=== PATIENT | male | born 1985 | race Caucasian/White ===

== ENCOUNTER 2024-10-14 09:13 | Day surgery (SDC) | payer OTHER, SELFPAY ==
--- OUTSIDE RECORDS SUMMARY | 2024-10-06 12:30 | XMS_ITS | Data Portability ---
Author Organization [facility] s, [address] Address [address] [place] [address] Assessment No assessment recorded. Plan of Treatment Reminders Order Date Submit Date Provider Last Modified By Organization Details Last Modified Time Details Appointments None recorded. Lab None recorded. Referral ENT surgery referral 2022 023 [email or web address] Not available 09:08:05 Procedures None recorded. Surgeries None recorded. Imaging None recorded. Medication Orders Augmentin 875 mg-125 mg tablet 2022 023 [facility] #[id number], [address] [place], [address], 14:29:06 loratadine 10 mg tablet 2022 023 [facility] #[id number], [address] [place], [address], 14:29:07 fluticasone propionate 50 mcg/actuati on nasal spray,suspe nsion 2022 023 [id number] [address] [place], [address], 14:29:06 Patient TargetsNo targets recorded. Patient Instructions Encounter Date Encounter Id Patient Instructions Last Modified By Organization Details Last Modified Time 06/20/2022 [id number] Acute Sinusitis: Care Instructions Not available 06/20/2022 14:29:03 chronic sinusitis: care instructions Not available 06/20/2022 14:29:04 Reason for Referral ENT Surgery Referral for Dev iated nasal septum Referring Physician: Royal Miguel, Urgent Care, Encounter Date: 06/20/2022 Problems No Known Problems Medical Equipment None Reported. Allergies No known drug allergies Medications Name Sig Start Date Stop Date Status Note LastModified by Organization Details LastModified Time Augmentin 875 mg-125 mg tablet Take 1 tablet every 12 hours by oral route with meals for 10 days. 2022 active Not Available Not Available Not Avai lable fluticasone propionate 50 mcg/actuatio n nasal spray,suspen elba [place] 1 spray every day by intranasal route. 2022 active Not Available Not Available Not Avai lable loratadine 10 mg tablet Take 1 tablet every day by oral route. 2022 active Not Available Not Available Not Avai lable Vitals Date Recorded Body height Body mass index (BMI) Body weight Oxygen saturation Oxygen saturation in Arterial blood by Pulse oximetry Heart rate Respiratory rate Body temperature Systolic And Diastolic Provider Name and Address Organization Details Last Updated DateTime 167.64 cm 21.3 kg/m2 23690.1 9 g 97 % 97 % 65 /min 16 /min 98.1 [degF] 138/96 mm[Hg] ELMO ROMERO PA - [facility] 14:13:14 Social History Question Answer Notes LastModified by [place] Details LastModified Time Tobacco Smoking Status Former Smoker ELMO vera PA - [facility] 06/20/2022 14:10:17 Which Illicit Or Recreational Drugs Have You Used? Marijuana Information not available 06/20/2022 Have You Recently Traveled Abroad? No Information not available 06/20/2022 Sex: Unknown Functional Status Question Answer Note LastModified by [place] Details LastModified Time Do you use any illicit or recreational drugs? Yes Information not available 06/20/2022 Do you or have you ever used any other forms of tobacco or nicotine? Yes Information not available 06/20/2022 What is your level of alcohol consumption? Occasional Information not available 06/20/2022 Are you currently employed? No Information not available 06/20/2022 Do you or have you ever used e-cigarettes or vape? Current user of electronic cigarettes Information not available 06/20/2022 Mental Status None recorded. Family History Relationship Description Onset Age of this Age Resolved Age Notes LastModified by Organization Details LastModified Time Father No current problems or disability Not available 06/20 14:09:59 Mother No current problems or disability Not available 06/20 14:09:59 Medical History No medical history recorded. Immunizations Vaccine Type Date Status Note Provider Nam e and Address Organization Details Recorded Time COVID-19, mRNA, LNP-S, bivalent, PF, 30 mcg/0.3 mL dose 04/30/2022 completed MARTIN May - [facility] 06/20/2022 14:09:35 Past Encounters Encounter ID Performer Location Encounter Start Date Encounter Closed Date Diagnosis/Indication Diagnosis SNOMED-CT Code Diagnosis ICD10 Code Diagnosis Note [id number] [address] [place] [address] 01/11/2020 15:37:06 01/11/2020 17:10:28 [id number] Royal Miguel DO [address] [place] [address] 06/20/2022 12:22:46 06/20/2022 14:33:37 Acute sinusitis 45380218 J01.90 Given Hx and Sx and PE findings will Rx Antibiotic s and nasal spray and oral antihistam ine Take antibiotic with food. Eat a yogurt daily or take a probiotic while taking the antibiotic . Recommend humidified airrest, fluidstyle nol/ibu prn Patient advised to follow up as needed for worsening symptoms or no improvemen t. Discussed concerning red flags with patient and reasons to follow up in the Emergency Department urgently. Deviated nasal septum 12 [id number] J34.2 ent referral Health Concerns Section Related Observation LastModified by Organization Detai ls LastModified Time None Recorded Concern Status LastModified by Organization Details LastModified Time None Recorded Advance Directives Directive None Recorded Payers Insurance Date Sequence Insurance Name Policy Number Policy Coleman Covered Member ID Coleman Member ID Guarantor Name 06/20/2022 1 RIKCY-ZINA (PPO) [id number] Evan Del Real [id number] Evan Del Real 06/20/2022 PROMPT PAY Co shirlene Del Real Notes Date Note Type Note Provider Name and Address Organization Details Recorded Time 06/20/2022 text/html Sinus Complaints UCReported bypatient.Notes:36 yo male c/o sinus painfacial pain & pressure, congestion with post nasal drip x 12daystried No feverNo chillsNo coughNo difficulty breathing or respiratory distressNo CPNo ear painNo sore throatNo Abdominal painNo nauseaNo vomitingNp diarrheaNo myalgiaNo fatigueNo rashNo HANo dizzinessNo recent travelNo known sick contacts Royal Miguel, DO [facility] [place], [address], PA - [facility] 06/20/2022 14:29:33
--- NOTE | ~2024-10-14 | FL_ITS ---
EXAMINATION: XR LUMBAR PUNCTURE CLINICAL INFORMATION: ENCEPHALITIS COMPARISON: None available. TECHNIQUE: Informed consent was obtained from the patient. Timeout was performed. Using fluoroscopic guidance, the L2-3 interlaminar space was identified, marked, and the skin prepped and draped in sterile fashion. Skin and subcutaneous tissues were anesthetized with 1% lidocaine. Subsequently, a 20-gauge Quincke spinal needle was advanced into the thecal sac, and clear CSF was noted at the needle hub. Opening pressure was measured at 12 cm H2O. Approximately 15 mL of clear CSF was obtained passively, and sent for laboratory analysis. The patient tolerated the procedure well. There were no immediate complications. 1 fluoroscopic spot image obtained. FLUOROSCOPY TIME: 13 seconds DOSE AREA PRODUCT: 100.7 uGy-m2 (microgray-meter squared) FL/FL guided lumbar puncture LP IMPRESSION: 1. Successful L2-3 interlaminar lumbar puncture with collection of approximately 15 mL CSF. 2. Opening pressure measured at 12 cm H2O. Electronically signed by: Irving Calloway MD 10/14/2024 12:51 PM EDT
[2024-10-14 09:49] VITALS: BMI 27.0
[2024-10-14 10:18] LABS: MANUAL DIFF FLAG NO
[2024-10-14 10:25] LABS: Hematocrit 43.5 % (42.0-52.0); Hemoglobin 15.1 g/dl (14.0-18.0); Imm Gran Abs Auto 0.02 X10*3/uL (0.00-0.03); Imm Gran Pct Auto 0.3 % (0.0-0.4); Lymphocytes Absolute Auto 1.7 X10*3/uL (1.2-4.9); Mean Corpuscular HGB Conc 34.7 g/dl (31.0-36.0); Mean Corpuscular Hemoglobin 28.5 pg (27.0-33.0); Mean Corpuscular Volume 82.1 fL (80.0-98.0); NRBC Abs Auto 0.000 X10*3/uL (0.0-0.012); NRBC Pct Auto 0.0 /100WBC (0.0-0.2); Platelet Count 253 X10*3/uL (160-400); Red Blood Count 5.30 X10*6/uL (4.60-5.80); White Blood Count 6.3 X10*3/uL (4.8-10.8)
[2024-10-14 10:28] LABS: INTERNATIONAL NORM RATIO 1.1 (0.9-1.1); Prothrombin Time 12.6 SEC (10.9-12.4)
[2024-10-14 10:30] LABS: Partial Thromboplastin Time 33.4 SEC (26.0-36.8)
[2024-10-14 10:35] LABS: Anion Gap 12 (12-20); Blood Urea Nitrogen 16 mg/dL (9-16); Calcium 9.3 mg/dL (8.4-10.2); Carbon Dioxide 27 mmol/L (22-29); Chloride 106 mmol/L (96-108); Creatinine Clr Calc Pharmacy 104.7; Estimated Glomerular Filt Rate > 60; Potassium 3.7 mmol/L (3.3-5.1); Sodium 141 mmol/L (135-145)
[2024-10-14 11:30] VITALS: BP 117/76; PULSE 63; RESP 18; TEMP 37; O2SAT 98
[2024-10-14 12:00] VITALS: BP 110/62; PULSE 67; RESP 18; O2SAT 99
[2024-10-14 12:15] VITALS: BP 112/71; PULSE 70; RESP 17; O2SAT 98
[2024-10-14 12:30] VITALS: BP 115/71; PULSE 75; RESP 19; TEMP 36.6; O2SAT 99
[2024-10-14 12:47] LABS: Red Blood Cell CSF 1 MM*3; White Blood Cell CSF 1 MM*3
[2024-10-14 13:40] LABS: Lymphocytes CSF 100 %
[2024-10-15 12:40] LABS: Oligoclonal Serum Yes
[2024-10-17 08:18] LABS: Albumin 5.0 g/dL (3.6-5.1); Albumin, CSF 23.6 mg/dL (8.0-42.0); IgG, CSF 3.6 mg/dL (0.8-7.7)
== END 2024-10-14 13:06 | disposition home or self-care (01) ==
LOC: HO.SSS 09:14
PROVIDERS: Radiology Diagnostic Radiology; PCP Internal Medicine; Visit Provider Psychiatry & Neurology Neurology
PROC: 009U3ZZ Drainage of Spinal Canal, Percutaneous Approach (ICD-10-PCS; CPT 62270; principal; 2024-10-14 11:00)
DX: G04.90 Encephalitis and encephalomyelitis, unspecified (principal); R53.82 Chronic fatigue, unspecified; R25.8 Other abnormal involuntary movements; R26.9 Unspecified abnormalities of gait and mobility; J32.9 Chronic sinusitis, unspecified; F41.9 Anxiety disorder, unspecified; F10.11 Alcohol abuse, in remission; Z79.899 Other long term (current) drug therapy
CPT/HCPCS: 36415; 62328; 80048; 82042; 82945; 83916; 84157; 85025; 85610; 85730; 87015; 87070; 87205; 89051; J2003; J2004

== ENCOUNTER → 2024-10-14 11:00 | Outpatient (BNV) | payer OTHER, SELFPAY | PROVIDERS: PCP Internal Medicine; Visit Provider Radiology Diagnostic Radiology | DX: G04.90 Encephalitis and encephalomyelitis, unspecified (principal) | CPT/HCPCS: 62328 ==

== ENCOUNTER 2024-10-19 12:23 | Outpatient (AMB) | payer OTHER, SELFPAY ==
--- NOTE | 2024-10-19 12:44 | MHC.OFFVIS ---
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 He was seen with chronic fatigue syndrome and gait disorder. 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 It was constant and progressing. He was sleeping 5-6 hours a night. His second complaint was unsteadiness and stiffness. He described spasticity and clonus due to which his legs were shake and make him unsteady. He has been seen at [facility] in [place] but his imaging did not reveal any such signs.) His exam revealed bilateral hyperreflexia, especially of legs, flexor planters and mildly spastic gait. [facility] Medical History (Updated 10/19/24 @ 13:05 by Romy Baumann MD) Somatization disorder Gait disorder Anxiety Chronic fatigue syndrome Brain cyst Cervical disc disease No pertinent past medical history Surgical History (Updated 10/14/24 @ 09:49 by David Jean-Baptiste RN) No pertinent past surgical history Social History Patient Tobacco Use Status: Current everyday Tobacco user Tobacco use type: Smokeless Tobacco Second Hand Smoke Exposure: No Assessment & Plan Assessment & Plan (1) Chronic fatigue syndrome: Code(s): G93.32 - Myalgic encephalomyelitis/chronic fatigue syndrome Category: Medical (2) Autoimmune encephalitis: Comment: NCV/EMG RTUE/RTLE (in office) Early right median neuropathy across the Carpal tunnel, otherwise no significant finding noted. 09/05/24. MRI Brain WWO at [place] in Apr 2024: R ant temp area cystic lesion without enhancement, probably intra-axial, Chronic PNS disease MRI C + T + LS spine at [facility] in May 2024: Straight cervical curvature, C 5/6 midline disc w/o significant stenosis, Mild mid thoracic similar disc, no cord disease Labs at [facility] in 2024: B12,folate, TSH, thyroid Abs, ESR, FROILAN, Babesiosis, Lyme, Trepenoma: WNL Code(s): G04.81 - Other encephalitis and encephalomyelitis Category: Medical Plan Impression: a: Encephalitis, probably of autoimmune type: Fatigue, gait disorder, hyperreflexia with CSF protein of 45 and OCBs in serum and CSF Rec: Trial of prednisone Medications: New prednisone 20 mg PO DAILY 90 tabs 0RF Coding Level of Care Code Est Pt Level 5 (09816) Diagnoses Chronic fatigue syndrome G93.32 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
--- OUTSIDE RECORDS SUMMARY | 2024-10-19 13:21 | XMS_ITS | Clinical Summary ---
Author Organization [facility] 299 [facility] Address [address] [place] [address] Phone Care Team Providers Care Dowel Sander Operator Name Role Phone Monique Lott MD Primary Care Provider [phone] Allergies No known active allergies Medications cyanocobalamin, vitamin B-12, (VITAMIN B-12 ORAL) Take by mouth. Activ e D3/red wine/resveratro l/malt (SUPER-D3+ ORAL) D3 Super Strength 50 MCG (2000 UT) Cap TAKE 1 CAPSULE BY MOUTH EVERY DAY Active L. acidophilus/L.b ulgaricus (LACTOBACILLUS ACIDOPH-L.BULGA R ORAL) Take by mouth. - Oral Active magnesium oxide (MAG-OX) 400 mg magnesium tablet Take 400 mg by mouth daily. - Oral Active glucosamine-cho ndroitin 500-400 mg tablet Take 1 tablet by mouth 3 (three) times a day. Active dicyclomine (BENTYL) 10 mg capsuleIndicati ons:Defecation urgency,Periumb ilical abdominal cramping Take 1 capsule (10 mg total) by mouth 2 (two) times a day if needed (for urgency and abdominal pain). 60 capsule 11 4 02/23/20 25 Active wheat dextrin (BENEFIBER CLEAR SF, DEXTRIN, ORAL) Take by mouth. Active loratadine (CLARITIN) 10 mg tablet Take 1 tablet (10 mg total) by mouth 1 (one) time each day if needed for allergies. 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 Del Real describes persistent fatigue headaches and spasticity. He was getting a workup for MS when an MRI of the brain revealed a cystic structure in the anterior aspect of the right temporal lobe. He is neurologically intact but is hyperreflexic and does ambulate with a spastic gait. An MRI of the brain and cervical spine were obtained on April 15 followed by an MRI of the thoracic spine on May 30. Cervical and thoracic MRIs did not reveal any evidence of cord compression. 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 I explained that this was an incidental finding and not likely related to his symptoms. I told him that I would review the films with Dr. Hannah but I presume she would want to get repeat imaging in 3 to 6 months. I let him know I would be back in touch once we had reviewed his situation. 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); MRI of brain abnormal from Last 3 Months Immunizations Name Administration Dates Next Due Influenza Quadravalent, MDCK , 0.5ml, preservative free (Flucelvax) 6mo and older 01/03/2020 Influenza trivalent, 0.5mL, preservative free (Fluarix; FluLaval; Fluzone) ages 6mo and older (Afluria) 3 years and older 05/11/2024 Pfizer (ages 12 & older) Andrae, COVID-19 04/07 Surgical History Surgery Date Site/Laterality Comments ESOPHAGOGASTRODUODENOSCOPY 06/01/2023 negative biopsy Medical History Medical History Date Comments GERD (gastroesophageal reflux disease) Anxiety Family History Medical History Relation Name Comments Bipolar disorder Mother Psoriasis Mother Rheum arthritis Other Great Aunt Colon cancer Neg Hx Colonic polyp Neg Hx Relation Name Status Comments Mother Other Great Aunt Social History Tobacco Use Types Packs/Day Years Used Date Smoking Tobacco: Former Cigarettes 2019 Smokeless Tobacco: Never Tobacco Cessation:Counseling Given: Not Answered Alcohol Use Standard Drinks/Week Comments Not Currently 0 (1 standard drink = 0.6 oz pur e alcohol) Housing Instability Answer Date Recorde d Are you worried that in the next 2 months you may not have stable housing? No 05/25/2024 Food Access & Nutrition Answer Date Rec orded Do you have access to a vari ety of food including fruits and vegetables? Yes 05/25/2024 Health Literacy Answer Date Recorded How often do you need to hav e someone help you when you read instructions, pamphlets, or other written material from your doctor or pharmacy? Never 05/25/2024 Caregiver: How often do you need to have someone help you when you read instructions, pamphlets, or other written material from your doctor or pharmacy? Not on file 05/25/2024 Financial Risk Answer Date Recorded How hard is it for you to pa y for the very basics like food, housing, medical care, and air conditioning / heating? Very hard 05/25/2024 Transportation Answer Date Recorded Has the lack of transportati on kept you from meetings, work, or from getting things needed for daily living? No Has the lack of transportati on kept you from medical appointments or from getting medications? No 05/25/2024 Social Isolation Answer Date Recorded How often do you feel lonely or isolated from th ose around you? Never 05/25/2024 Food Risk Answer Date Recorded Within the past 12 months we worried whether our food would run out before we got money to buy more. Never true 05/25/2024 Within the past 12 months th e food we bought just didn't last and we didn't have money to get more. Never true 05/25/2024 Dependent Care Answer Date Recorded Do you need help finding or paying for care for your loved ones. For example, child care giver or elderly care for an older adult? No 05/25/2024 Education Answer Date Recorded Do you think completing more education or training, like finishing a GED, going to college, or learning a trade, would be helpful for you? No 05/25/2024 Employment and Income Answer Date Recor ded During the last four weeks, have you been actively looking for work? No 05/25/2024 Living Situation Answer Date Recorded What is your living situation? 0 05/25/2024 Sex and Gender Information Value Date Recorded Sex Assigned at Not on file Legal Sex Male 6:49 AM EST Gender Identity Not on file Sexual Orientation Not on file Obstetrics History Last Filed Vital Signs Vital Sign Reading Time Taken Comments Blood Pressure 92/62 06/22/2024 1:21 PM EDT Pulse 80 06/22/2024 1:21 PM EDT Temperature 36.9 C (98.4 F) 06/22/2024 1:21 PM EDT Respiratory Rate 14 06/22/2024 1:21 PM EDT Oxygen Saturation 99% 05/26/2024 8:35 AM EST Inhaled Oxygen Concentration - - Weight 56.7 kg (125 lb) 07/26/2024 2:26 PM EDT Height 167.6 cm (5' 6 ) 07/26/2024 2:26 PM EDT Body Mass Index 20.18 07/26/2024 2:26 PM EDT Plan of Treatment Upcoming Encounters Date Type Department Care Team (Late st Contact Info) Description 11/22/2024 8:30 AM EDT Office Visit [facility] [address] [facility] [address] [place] [address] Obdulia Zheng MD [address] [facility] [address] [place] [phone] 01/11/2025 10:00 AM EDT Office Visit Adult Medicine [address] [address] Monique Lott MD [address] [place] [address] Health Maintenance Due Date Last Done Comments DTaP,Tdap,and Td Vaccines (1 - Tdap) 12/06/2006 Hepatitis B Vaccines (1 of 3 - 19+ 3-dose series) 12/06/2006 Influenza Vaccine (#1) 2024 05/11/2024, 2019 Social Influencers of Health Screening 05/25/2025 05/25/2024 Cholesterol Screening (Lipid Panel) 05/31/2029 05/31/2024, 05/25/2023 COVID-19 Vaccine Completed 05/11/2024, , 02/20/2021, Additional history exists Depression Screening Completed 05/25/2024 Hepatitis C Screening Completed 05/31/2024, 025 HIV Screening Completed 10/18/2024, 03/22/2024 HIB Vaccines Aged Out No longer eligi ble based on patient's age to complete this topic HPV Vaccines Aged Out No longer eligi ble based on patient's age to complete this topic Hepatitis A Vaccines Aged Out No long er eligible based on patient's age to complete this topic IPV Vaccines Aged Out No longer eligi ble based on patient's age to complete this topic MMR Vaccines Aged Out No longer eligi ble based on patient's age to complete this topic Meningococcal ACWY Vaccine Aged Out N o longer eligible based on patient's age to complete this topic Meningococcal B Vaccine Aged Out No l onger eligible based on patient's age to complete this topic Pneumococcal Vaccine: Pediatrics (0 to 5 Years) and At-Risk Patients (6 to 49 Years) Aged Out No longer eligible based on patient's age to complete this topic RSV Immunization Patients Under 20 months Aged Out No longer eligible based on patient's age to complete this topic Varicella Vaccines Aged Out No longer eligible based on patient's age to complete this topic Procedures Procedure Name Priority Date/Time Associated Diagnosis Comments IMMUNOGLOBULINS IGG, IGA, IGM Routine 10/18/2024 10:36 AM EDT Encephalitis FOLATE Routine 10/18/2024 10:36 AM EDT Encephalitis SEDIMENTATION RATE Routine 10/18/2024 10 :36 AM EDT Encephalitis VITAMIN B12 Routine 10/18/2024 10:36 AM EDT Encephalitis BORRELIA BURGDORFERI ANTIBODY Routine 10/18/2024 10:36 AM EDT Encephalitis HIV 1, 2 ANTIBODY, P24 ANTIGEN WITH REFLEX TO DIFFERENTIATION Routine 10/18/2024 10:36 AM EDT Encephalitis TREPONEMA PALLIDUM ANTIBODY WITH REFLEX TO RPR AND PARTICLE AGGLUTINATION Routine 10/18/2024 10:36 AM EDT Encephalitis ANTI-NEUTROPHILIC CYTOPLASMIC ANTIBODY Routine 10/18/2024 10:36 AM EDT Encephalitis THYROID PEROXIDASE ANTIBODY Routine 10/18/2024 10:36 AM EDT Encephalitis EXTERNAL XRAY REPORT 10/14/2024 CERULOPLASMIN Routine 08/30/2024 9:57 AM EDT Numbness Tremor VITAMIN B12 AND FOLATE Routine 9:46 AM EDT Vitamin B12 deficiency THYROID STIMULATING HORMONE Routine 08/22/2024 9:46 AM EDT Chronic fatigue CREATINE KINASE Routine 08/22/2024 9:46 AM EDT Chronic fatigue VITAMIN D 25 HYDROXY Routine 08/22/2024 9:46 AM EDT Vitamin D deficiency HEPATITIS C ANTIBODY Routine 05/31/2024 10:21 AM EST Screen for STD (sexually transmitted disease) LIPID PANEL WITH REFLEX TO DIRECT LDL Routine 05/31/2024 10:21 AM EST Polyarthralgia from Last 3 Months or Most Recently Relevant to Health Maintenance Results * HIV 1,2 antibody, p24 antigen with reflex to differentiation (10/18/2024 10:36 AM EDT) [facility] HIV Combo AB/AG Negative Negative LAB CHEMISTRY METHOD 10/18/2024 5:01 PM EDT [facility] Blood Venous blood specimen / Unknown Venipuncture / Unknown 10/18/2024 10:36 AM EDT 10/18/2024 10:36 AM EDT Narrative [facility] - 10/18/2024 5:01 PM EDT This assay is a 4th generation assay allowing for earlier detection of HIV infection by detecting the presence of the HIV-1 p24 antigen as well as the traditional antibodies to HIV type 1 (including group O) and type 2. Use of a 4th generation assay is the current CDC recommendation for HIV screening. Romy Baumann MD LAB BLOOD ORDERABLES Final Result Performing Organization Address City/[facility]/ZIP Co de Phone Number [facility] [address] [place] [address], [place] [phone] * Treponema pallidum antibody with reflex to RPR and particle agglutination (10/18/2024 10:36 AM EDT) [facility] T. Pallidum Antibodies Negative Negative LAB CHEMISTRY METHOD 10/18/2024 5:24 PM EDT [facility] Blood Venous blood specimen / Unknown Venipuncture / Unknown 10/18/2024 10:36 AM EDT 10/18/2024 10:36 AM EDT us Romy Baumann MD LAB BLOOD ORDERABLES Final Result [facility] [address] [place] [address], [place] [phone] * Thyroid peroxidase antibody (10/18/2024 10:36 AM EDT) Thyroid Peroxidase Ab 37.0 <=60.0 I Unit/mL LAB CHEMISTRY METHOD 10/18/2024 4:21 PM EDT [facility] Blood Venous blood specimen / Unknown Venipuncture / Unknown 10/18/2024 10:36 AM EDT 10/18/2024 10:36 AM EDT us Romy Baumann MD LAB BLOOD ORDERABLES Final Result Performing Organization Address [facility] de Phone Number [facility] [address] [place] [address], * Borrelia burgdorferi antibody (10/18/2024 10:36 AM EDT) Lyme Ab Negative Negative LAB CHEMISTRY METHOD 10/18/2024 12:50 PM EDT [facility] Comment: No laboratory evidence of infection with B. burgdorferi (Lyme disease). Negative results may occur in patients recently infected (<=14 days) with B. burgdorferi. If recent infection is suspected, repeat testing on a new sample collected in 7- 14 days is recommended. Blood Venous blood specimen / Unknown Venipuncture / Unknown 10/18/2024 10:36 AM EDT 10/18/2024 10:36 AM EDT us Romy Baumann MD LAB BLOOD ORDERABLES Final Result Performing Organization Address [facility] de Phone Number [facility] [address] [place] [address], [place] [phone] * Anti-neutrophilic cytoplasmic antibody (10/18/2024 10:36 AM EDT) Myeloperoxidase Ab Negative Negative LAB CHEMISTRY METHOD 10/19/2024 11:13 AM EDT [facility] Myeloperoxidase Ab, Quant 1 <=20 units LAB CHEMISTRY METHOD 10/19/2024 11:13 AM EDT [facility] Proteinase-3 Ab Negative Negative LAB CHEMISTRY METHOD 10/19/2024 11:13 AM EDT [facility] Proteinase-3 Ab Quant 1 <=20 units LAB CHEMISTRY METHOD 10/19/2024 11:13 AM EDT [facility] Blood Venous blood specimen / Unknown Venipuncture / Unknown 10/18/2024 10:36 AM EDT 10/18/2024 10:36 AM EDT Romy Baumann MD LAB BLOOD ORDERABLES Final Result Performing Organization Address City/[facility]/ZIP Co de Phone Number [facility] [address] [place] [address], [place] [phone] * Sedimentation rate (10/18/2024 10:36 AM EDT) Sed Rate 3 0 - 15 mm/hr LAB HEMETOLOGY METHOD 10/18/2024 12:03 PM EDT [facility] Blood Venous blood specimen / Unknown Venipuncture / Unknown 10/18/2024 10:36 AM EDT 10/18/2024 10:36 AM EDT Romy Baumann MD LAB BLOOD ORDERABLES Final Result Performing Organization Address [facility]/ZIP Co de Phone Number [facility] [address] [place] [address], [place] [phone] * (ABNORMAL) Immunoglobulins IgG, IgA, IgM (10/18/2024 10:36 AM EDT) Total IgG 1,780(H) 549 - 1,584 mg/dL LAB CHEMISTRY METHOD 10/19/2024 10:43 AM EDT [facility] IgA 331 61 - 348 mg/dL LAB CHEMISTRY METHOD 10/19/2024 10:43 AM EDT [facility] IgM 60 23 - 259 mg/dL LAB CHEMISTRY METHOD 10/19/2024 10:43 AM EDT [facility] Blood Venous blood specimen / Unknown Venipuncture / Unknown 10/18/2024 10:36 AM EDT 10/18/2024 10:36 AM EDT Romy Baumann MD LAB BLOOD ORDERABLES Final Result Performing Organization Address City/[facility]/ZIP Co de Phone Number [facility] [address] [place] [address], [place] [phone] * Folate (10/18/2024 10:36 AM EDT) Folate 3.1 2.8 - 17.0 ng/ml LAB CHEMISTRY METHOD 10/18/2024 2:51 PM EDT [facility] Blood Venous blood specimen / Unknown Venipuncture / Unknown 10/18/2024 10:36 AM EDT 10/18/2024 10:36 AM EDT Romy Baumann MD LAB BLOOD ORDERABLES Final Result Performing Organization Address [facility]/ZIP Co de Phone Number [facility] [address] [place] [address], [place] [phone] * (ABNORMAL) Vitamin B12 (10/18/2024 10:36 AM EDT) Vitamin B-12 1,310(H) 250 - 900 pcg/mL LAB CHEMISTRY METHOD 10/18/2024 2:51 PM EDT [facility] Blood Venous blood specimen / Unknown Venipuncture / Unknown 10/18/2024 10:36 AM EDT 10/18/2024 10:36 AM EDT Romy Baumann MD LAB BLOOD ORDERABLES Final Result Performing Organization Address City/[facility]/ZIP Co de Phone Number [facility] [address] [place] [address], [place] [phone] * External Xray Report (10/14/2024) Anatomical Region Laterality Modality Radiographic Cate ging Provider [facility] XR PROCEDURES Final Result * Ceruloplasmin (08/30/2024 9:57 AM EDT) Ceruloplasmin 23 20 - 60 mg/dL 09/02/2024 5:43 AM EDT [facility] Comment: Test performed at [facility], [address] , [place] [address] Diane Lockhart MD, PhD - Athletic Coordinator Blood Venous blood specimen / Unknown Venipuncture / Unknown 08/30/2024 9:57 AM EDT 08/30/2024 9:57 AM EDT Kan Denis MD LAB BLOOD ORDERABLES Final R esult [facility] [address] [place] [address] * (ABNORMAL) Vitamin B12 and folate (08/22/2024 9:46 AM EDT) Pathologist [facility] Vitamin B-12 1,311(H) 250 - 900 pcg/mL LAB CHEMISTRY METHOD 08/22/2024 2:42 PM EDT [facility] Folate 3.4 2.8 - 17.0 ng/ml LAB CHEMISTRY METHOD 08/22/2024 2:42 PM EDT [facility] Blood Venous blood specimen / Unknown Venipuncture / Unknown 08/22/2024 9:46 AM EDT 08/22/2024 9:46 AM EDT Monique Lott MD LAB BLOOD ORDERABLES Final Resul t [facility] [address] [place] [address], * Vitamin D 25 hydroxy (08/22/2024 9:46 AM EDT) Vit D, 25-Hydroxy 67.6 30.0 - 80.0 ng/mL LAB CHEMISTRY METHOD 08/22/2024 5:08 PM EDT [facility] Blood Venous blood specimen / Unknown Venipuncture / Unknown 08/22/2024 9:46 AM EDT 08/22/2024 9:46 AM EDT Monique Lott MD LAB BLOOD ORDERABLES Final Resul t Performing Organization Address City/[facility]/ZIP Co de Phone Number [facility] [address] [place] [address], [place] [phone] * Thyroid stimulating hormone (08/22/2024 9:46 AM EDT) Pathologist [facility] TSH 1.43 0.40 - 4.00 mcIU/mL LAB CHEMISTRY METHOD 08/22/2024 5:08 PM EDT [facility] Blood Venous blood specimen / Unknown Venipuncture / Unknown 08/22/2024 9:46 AM EDT 08/22/2024 9:46 AM EDT us Romy Baumann MD LAB BLOOD ORDERABLES Final Result [facility] [address] [place] [address], [place] [phone] * Creatine kinase (08/22/2024 9:46 AM EDT) Total CK 90 22 - 269 unit/L LAB CHEMISTRY METHOD 08/22/2024 2:42 PM EDT [facility] Blood Venous blood specimen / Unknown Venipuncture / Unknown 08/22/2024 9:46 AM EDT 08/22/2024 9:46 AM EDT us Romy Baumann MD LAB BLOOD ORDERABLES Final Result Performing Organization Address City/[facility]/ZIP Co de Phone Number [facility] [address] [place] [address], [place] [phone] * Hepatitis C antibody (05/31/2024 10:21 AM EST) [facility] Hepatitis C Antibody Negative Negative LAB CHEMISTRY METHOD 05/31/2024 4:26 PM [facility] Blood Venous blood specimen / Unknown Venipuncture / Unknown 05/31/2024 10:21 AM EST 05/31/2024 10:21 AM EST Monique Lott MD LAB BLOOD ORDERABLES Final Resul t Performing Organization Address [facility]/ZIP Co de Phone Number [facility] [address] [place] [address], [place] [phone] * Lipid panel with reflex to direct LDL (05/31/2024 10:21 AM EST) [facility] Cholesterol 157 0 - 200 mg/dL LAB CHEMISTRY METHOD 05/31/2024 2:25 PM [facility] Triglycerides 90 0 - 150 mg/dL LAB CHEMISTRY METHOD 05/31/2024 2:25 PM [facility] HDL 42 >=40 mg/dL LAB CHEMISTRY METHOD 05/31/2024 2:25 PM [facility] LDL Calculated 97 0 - 100 mg/dL LAB CHEMISTRY METHOD 05/31/2024 2:25 PM [facility] VLDL Cholesterol Esdras 18 mg/dL LAB CHEMISTRY METHOD 05/31/2024 2:25 PM [facility] Non HDL Chol. (LDL+VLDL) 115 <145 mg/dL LAB CHEMISTRY METHOD 05/31/2024 2:25 PM [facility] Chol/HDL Ratio 3.7 0.0 - 4.4 LAB CHEMISTRY METHOD 05/31/2024 2:25 PM [facility] Blood Venous blood specimen / Unknown Venipuncture / Unknown 05/31/2024 10:21 AM EST 05/31/2024 10:21 AM EST Monique Lott MD LAB BLOOD ORDERABLES Final Resul t [facility] ([facility]) [facility] [address] [place] [address], from Last 3 Months or Most Recently Relevant to Health Maintenance Insurance [facility] [employer] Care Teams Dowel Sander Operator Relationship Specialty Start Date End Date Monique Lott MD [address] [place] [id number] PCP - General 07/08/22
--- OUTSIDE RECORDS SUMMARY | 2024-10-19 13:21 | XMS_ITS | Data Portability ---
Author Organization [facility], [address] Address [address] [place] [address] Assessment No assessment recorded. Plan of Treatment Reminders Order Date Submit Date Provider Last Modified By Organization Details Last Modified Time Details Appointments None recorded. Lab None recorded. Referral ENT surgery referral 2022 023 [email or web address] Not available 09:08:05 Procedures None recorded. Surgeries None recorded. Imaging None recorded. Medication Orders Augmentin 875 mg-125 mg tablet 2022 023 [facility] #[id number], [address] [place], [address], 14:29:06 loratadine 10 mg tablet 2022 023 [facility] #[id number], [address] [place], [address], 14:29:07 fluticasone propionate 50 mcg/actuati on nasal spray,suspe nsion 2022 023 [id number] [address] [place], [address], 14:29:06 Patient TargetsNo targets recorded. Patient Instructions Encounter Date Encounter Id Patient Instructions Last Modified By Organization Details Last Modified Time 06/20/2022 [id number] Acute Sinusitis: Care Instructions Not available 06/20/2022 [...] propionate 50 mcg/actuatio n nasal spray,suspen elba [place] 1 spray every day by intranasal route. [...] Last Updated DateTime 167.64 cm 21.3 kg/m2 00051.1 9 g 97 % 97 % 65 /min 16 /min 98.1 [degF] 138/96 mm[Hg] ELMO ROMERO PA - [facility] 14:13:14 Social History Question Answer Notes LastModified by [employer] Details LastModified Time Tobacco Smoking Status Former Smoker ELMO vera PA - [facility] 06/20/2022 14:10:17 Which Illicit Or Recreational Drugs Have You Used? Marijuana Information not available 06/20/2022 Have You Recently Traveled Abroad? No Information not available 06/20/2022 Sex: Unknown Functional Status Question Answer Note LastModified by [employer] Details LastModified Time Do you use any [...] SNOMED-CT Code Diagnosis ICD10 Code Diagnosis Note [id number] [address] [place] [address] 01/11/2020 15:37:06 01/11/2020 17:10:28 [id number] Royal Miguel DO [address] [place] [address] 06/20/2022 12:22:46 06/20/2022 14:33:37 Acute sinusitis [id number] J01.90 Given Hx and Sx and PE [...] Emergency Department urgently. Deviated nasal septum 12 [id number] J34.2 ent referral Health Concerns Section Related Observation LastModified by Organization Detai ls LastModified Time None Recorded Concern Status LastModified by Organization Details LastModified Time None Recorded Advance Directives Directive None Recorded Payers Insurance Date Sequence Insurance Name Policy Number Policy Coleman Covered Member ID Coleman Member ID Guarantor Name 06/20/2022 1 RICKY-ZINA (PPO) [id number] Evan Del Real [id number] Evan Del Real 06/20/2022 PROMPT PAY [...] travelNo known sick contacts Royal Miguel, DO [facility] [place], [address], PA - [facility] 06/20/2022 14:29:33
== END 2024-10-19 13:13 | disposition home or self-care (01) ==
LOC: HO.HSM 12:24
PROVIDERS: PCP Internal Medicine; Visit Provider Psychiatry & Neurology Neurology
DX: G93.32 Myalgic encephalomyelitis/chronic fatigue syndrome (principal); G04.81 Other encephalitis and encephalomyelitis
CPT/HCPCS: 99214

== ENCOUNTER → 2024-10-19 12:23 | Outpatient (BNVA) | payer OTHER, SELFPAY | PROVIDERS: PCP Internal Medicine; Visit Provider Psychiatry & Neurology Neurology | DX: G93.32 Myalgic encephalomyelitis/chronic fatigue syndrome (principal); G04.81 Other encephalitis and encephalomyelitis | CPT/HCPCS: 99212 ==

== ENCOUNTER 2024-11-28 08:39 | Outpatient (AMB) | payer OTHER, SELFPAY ==
--- OUTSIDE RECORDS SUMMARY | 2024-11-24 23:59 | XMS_ITS | Continuity of Care Document ---
Author Organization [facility] Address [address] [place] [address]- Care Team Providers Care Body Piercer Name Role Phone Oren HOWARD, Monique Primary Care Physician [phone] Encounter [facility] Date(s): 10/25/24 - 11/24/24 [facility] [address] [place] [phone]- Attending Physician: Grace Stein Admitting Physician: Grace Stein Referring Physician: Grace Stein Encounter Type: Triage Allergies, Adverse Reactions, Alerts No Known Allergies Medications dicyclomine 10 mg oral capsule 0 Refills, Maintenance, 10/25/24 9:08:00 AM EDT, Partial fill upon patient request if the prescription is for a schedule II opioid drug. Start Date: 10/25/24 Status: Ordered Repeat number: 1 Drysol 20% topical solution 0 Refills, Maintenance, 10/25/24 9:07:00 AM EDT, Partial fill upon patient request if the prescription is for a schedule II opioid drug. Start Date: 10/25/24 Status: Ordered Repeat number: 1 Glucosamine Chondroitin By Mouth, Daily, 0 Refills, Maintenance, 10/25/24 9:11:00 AM EDT, Partial fill upon patient request if the prescription is for a schedule II opioid drug. Start Date: 10/25/24 Status: Ordered Repeat number: 1 ketoconazole 2% topical shampoo 0 Refills, Maintenance, 10/25/24 9:07:00 AM EDT, Partial fill upon patient request if the prescription is for a schedule II opioid drug. Start Date: 10/25/24 Status: Ordered Repeat number: 1 Misc Rx Refills 0, Maintenance, Magnesium 400 mg, 10/25/24 9:09:00 AM EDT, Supply Start Date: 10/25/24 Status: Ordered Repeat number: 1 omeprazole 20 mg oral enteric coated capsule 1 capsule = 20 mg, By Mouth, Daily, # 60 capsule, 0 Refills, Maintenance, 05/19/23 10:38:00 AM EST, EC Capsule, [facility]/pharmacy #[id number], Partial fill upon patient request if the prescription is for a schedule II opioid drug., 168, cm, 05/19/23 8:36:00 EST, Height, 58.9, kg, 05/19/23 8:36:00 EST, Dry Weight Start Date: 05/19/23 Stop Date: 07/18/23 Status: Ordered Quantity: 60.0 Unit: capsule Repeat number: 1 predniSONE 20 mg oral tablet 0 Refills, Maintenance, 10/25/24 9:07:00 AM EDT, Partial fill upon patient request if the prescription is for a schedule II opioid drug. Start Date: 10/25/24 Status: Ordered Repeat number: 1 Vitamin D3 oral tablet 1 tablet = 10 mcg, By Mouth, Daily, # 30 tablet, 0 Refills, Maintenance, 10/25/24 9:10:00 AM EDT, Tablet, Partial fill upon patient request if the prescription is for a schedule II opioid drug. Start Date: 10/25/24 Status: Ordered Quantity: 30.0 Unit: tablet Repeat number: 1 Vitamin D3 oral tablet 1 tablet = 10 mcg, By Mouth, Daily, 2000units, # 30 tablet, 0 Refills, Maintenance, 10/25/24 9:10:00AM EDT, Tablet, Partial fill upon patient request if the prescription is for a schedule II opioid drug. Start Date: 10/25/24 Status: Ordered Quantity: 30.0 Unit: tablet Repeat number: 1 Patient Care team information Care Team Personnel Name: Monique Lott MD Position: Reference Physician Member Role: PCP Address: [address] [place] [id number] Telecom: Care Team Related Persons Name: GEMMA CHESTER Insurance Providers Guarantor name: ANGELIA Health Plan Information #: 1 Payer: [employer] Payer Identifier: ANGELIA Member Number: [id number] Group Number: ANGELIA Subscriber Identifier: [id number] Relationship to Subscriber: self Coverage Type: NA Coverage Verification Date: ANGELIA Telecom: ANGELIA Address:
--- OUTSIDE RECORDS SUMMARY | 2024-11-28 09:06 | XMS_ITS | Clinical Summary ---
Author Organization [facility] [address] [facility] Address [address] [place] [address] Phone Care Team Providers Care Seal Delivery Vehicle Team Technician Name Role Phone Monique Lott MD Primary Care Provider [phone] Allergies No known active allergies Medications magnesium oxide (MAG-OX) 400 mg magnesium tablet [...] SF, DEXTRIN, ORAL) Take by mouth. Active Vitamin D3 50 mcg (2,000 unit) capsule TAKE 1 CAPSULE BY MOUTH EVERY DAY 90 capsule 1 5 Active omeprazole (PriLOSEC) [address] capsule TAKE 1 CAPSULE BY MOUTH EVERY DAY 90 capsule 1 5 Active ketoconazole (NIZORAL) 2 % cream Apply topically. 5 Active Drysol Dab-O-Matic 20 % external solution APPLY TO AFFECTED AREAS DAILY AT BEDTIME WHEN STABLE, DECREASE TO TWICE A WEEK. 5 Active ketoconazole (NIZORAL) 2 % shampoo APPLY TO SCALP 2X/WK, LEAVE ON 5 MINUTES THEN WASH OFF 5 Active predniSONE (DELTASONE) 20 mg tablet Take 1 tablet (20 mg total) by mouth 1 (one) time each day. 5 Active loratadine (CLARITIN) 10 mg tablet Take 1 tablet (10 mg total) by mouth 1 (one) time each day if needed for allergies. 90 each 1 5 05/10/19 26 Active cyanocobalamin, vitamin B-12, (VITAMIN B-12 ORAL) Take by mouth. 11/12/19 25 Discontinu ed(Therapy completed) D3/red wine/resveratro l/malt (SUPER-D3+ ORAL) D3 Super Strength 50 MCG (2000 UT) Cap TAKE 1 CAPSULE BY MOUTH EVERY DAY 11/12/19 25 Discontinu ed(Therapy completed) L. acidophilus/L.b ulgaricus (LACTOBACILLUS ACIDOPH-L.BULGA R ORAL) Take by mouth. - Oral 11/12/19 25 Discontinu ed(Therapy completed) loratadine (CLARITIN) 10 mg tablet Take 1 tablet (10 mg total) by mouth 1 (one) time each day if needed for allergies. 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 Assessment & Plan (07/26/2024 [...] Encounters Date Type Department Care Team Description 11/27/2024 8:54 AM EDT - 11/27/2024 11:59 PM EDT Hospital Encounter [facility] [address] [place] [phone] Paresthesia; Stiffness of unspecified joint, not elsewhere classified; Optic neuritis Discharge Disposition: Home or Self Care 11/27/2024 8:54 AM EDT - 11/27/2024 11:59 PM EDT Hospital Encounter [facility] [address] [place] [phone] Paresthesia; Stiffness of unspecified joint, not elsewhere classified; Optic neuritis Discharge Disposition: Home or Self Care 11/22/2024 8:30 AM EDT Office Visit [facility] [address] [facility] [address] [place] [phone] Obdulia Zheng MD Paresthesia (Primary Dx); Stiffness of unspecified joint, not elsewhere classified; Optic neuritis 11/11/2024 7:30 AM EDT Office Visit Adult Medicine [address] [phone] Monique Lott MD IgM kappa monoclonal gammopathy (Primary Dx); 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 Immunizations Name Administration Dates Next Due Influenza Quadravalent, MDCK , 0.5ml, preservative free (Flucelvax) 6mo and older 01/03/2020 Influenza trivalent, 0.5mL, preservative free (Fluarix; FluLaval; Fluzone) ages 6mo and older (Afluria) 3 years and older 05/11/2024 Pfizer (ages 12 & older) Bivalent, COVID-19 04/07 Surgical History Surgery Date Site/Laterality Comments ESOPHAGOGASTRODUODENOSCOPY 06/01/2023 negative biopsy Medical History Medical History Date Comments GERD (gastroesophageal reflux disease) Anxiety Family History Medical History Relation Name Comments Marfan syndrome Brother Bipolar disorder Mother Psoriasis Mother Rheum arthritis Other Great Aunt Colon cancer Neg Hx Colonic polyp Neg Hx Relation Name Status Comments Brother Mother Other Great Aunt Social History Tobacco Use Types Packs/Day Years Used Date Smoking Tobacco: Former Cigarettes 1 10 2 2019 Smokeless Tobacco: Never Alcohol Use Standard Drinks/Week Comments Not Currently [...] care for your loved ones. For example, registered nurse maternal child or elderly care for an older adult? [...] Sign Reading Time Taken Comments Blood Pressure 121/82 11/22/2024 8:26 AM EDT Pulse 83 11/22/2024 8:26 AM EDT Temperature 36.4 C (97.5 F) 11/11/2024 7:25 AM EDT Respiratory Rate 14 11/11/2024 7:25 AM EDT Oxygen Saturation 99% 11/22/2024 8:26 AM EDT Inhaled Oxygen Concentration - - Weight 54.9 kg (121 lb) 11/27/2024 9:43 AM EDT Height 167.6 cm (5' 6 ) 11/22/2024 8:26 AM EDT Body Mass Index 19.53 11/22/2024 8:26 AM EDT Plan of Treatment Upcoming Encounters Date Type Department Care Team (Late st Contact Info) Description 12/02/2024 9:15 AM EDT Office Visit [facility] Hematology Oncology [address] [place] [phone] Dane Bañuelos MD [address] [place] [phone] 01/11/2025 10:00 AM EDT Office Visit Adult Medicine [address] [phone] Monique Lott MD [address] [place] [phone] 03/24/2025 8:00 AM EST Telemedicine [facility] [address] [phone] Obdulia Zheng MD [address] [facility] [address] [place] [address] Health Maintenance Due Date Last Done Comments [...] Procedure Name Priority Date/Time Associated Diagnosis Comments MYELIN OLIGODENDROCYTE GLYCOPROTEIN ANTIBODY WITH REFLEX TO TITER Routine 11/23/2024 8:06 AM EDT WI IMMUNOFIXATION ELECTROPHORESIS SERUM Routine 10/18/2024 10:36 AM EDT Encephalitis IMMUNOGLOBULINS IGG, IGA, IGM Routine 10/18/2024 10:36 AM EDT Encephalitis BABESIA MICROTI ANTIBODIES, IGG AND IGM Routine 10/18/2024 10:36 AM EDT Encephalitis FOLATE Routine 10/18/2024 10:36 AM EDT Encephalitis SEDIMENTATION RATE Routine 10/18/2024 10 :36 AM EDT Encephalitis VITAMIN B12 Routine 10/18/2024 10:36 AM EDT Encephalitis IMMUNOFIXATION ELECTROPHORESIS Routine 10/18/2024 10:36 AM EDT Encephalitis BORRELIA BURGDORFERI ANTIBODY Routine 10/18/2024 10:36 AM EDT Encephalitis FROILAN IFA WITH TITER AND PATTERN Routine 10/18/2024 10:36 AM EDT Encephalitis HIV [...] Routine 08/30/2024 9:57 AM EDT Numbness Tremor HEPATITIS C ANTIBODY Routine 05/31/2024 10:21 AM EST Screen for STD (sexually transmitted disease) LIPID PANEL WITH REFLEX TO DIRECT LDL Routine 05/31/2024 10:21 AM EST Polyarthralgia from Last 3 Months or Most Recently Relevant to Health Maintenance Results * Myelin oligodendrocyte glycoprotein antibody with reflex to titer (11/23/2024 8:06 AM EDT) Myelin Oligodendrocyte Glycoprotein (MOG) Ab NEGATIVE NEGATIVE [facility], Comment: This test was developed and its analytical performance characteristics have been determined by [facility]. It has not been cleared or approved by the FDA. This assay has been validated pursuant to the CLIA regulations and is used for clinical purposes. 11/23/2024 8:06 AM EDT 11/23/2024 8:10 AM EDT Pamela DESI KAURSamirKOTA (NOEL) - 11/26/2024 10:06 PM EDT FASTING:NO FASTING: NO Obdulia Zheng MD LAB BLOOD ORDERABLES Fin al Result [facility], [address] [place] [address] * HIV 1,2 antibody, p24 antigen with reflex to differentiation (10/18/2024 10:36 AM EDT) Pathologist [facility] HIV Combo AB/AG Negative Negative LAB CHEMISTRY METHOD 10/18/2024 5:[address] [facility] Blood Venous blood specimen / Unknown Venipuncture / Unknown 10/18/2024 10:36 AM EDT 10/18/2024 10:36 AM EDT [facility] - 10/18/2024 5:01 PM EDT This assay is a 4th generation assay allowing for earlier detection of HIV infection by detecting the presence of the HIV-1 p24 antigen as well as the traditional antibodies to HIV type 1 (including group O) and type 2. Use of a 4th generation assay is the current CDC recommendation for HIV screening. us Romy Baumann MD LAB BLOOD ORDERABLES Final Result [facility] [address] [place] [address], [place] [phone] * Pathologist Review Immunofixation (10/18/2024 10:36 AM EDT) Pathologist [facility] Pathologist Interpretation 10/20/2024 2:[address] [facility] Blood Venous blood specimen / Unknown Venipuncture / Unknown 10/18/2024 10:36 AM EDT 10/18/2024 10:36 AM EDT Romy Baumann MD LAB BLOOD ORDERABLES Final Result Performing Organization Address [facility]/ZIP Co de Phone Number [facility] [address] [place] [address], [place] [phone] * Treponema pallidum antibody with reflex to RPR and particle agglutination (10/18/2024 10:36 AM EDT) [facility] T. Pallidum Antibodies Negative Negative LAB CHEMISTRY METHOD 10/18/2024 5:[address] [facility] Blood Venous blood specimen / Unknown Venipuncture / Unknown 10/18/2024 10:36 AM EDT 10/18/2024 10:36 AM EDT Romy Baumann MD LAB BLOOD ORDERABLES Final Result Performing Organization Address City/[facility]/ZIP Co de Phone Number [facility] [address] [place] [address], [place] [phone] * Babesia microti antibodies, IGG and IGM (10/18/2024 10:36 AM EDT) Babesia microti IgG Antibodies <1:64 10/23/2024 11:49 PM EDT [facility] Babesia microti IgM Antibodies <1:20 10/23/2024 11:49 PM EDT [facility] Babesia microti Interpretation SEE NOTE 10/23/2024 11:49 PM EDT [facility] Comment: ANTIBODY NOT DETECTED REFERENCE RANGES: IgG <1:64 IgM <1:20 Elevated antibody levels to B. microti indicate exposure to the organism. Human babesiosis infection is transmitted by the bite of an infected Ixodes tick or less frequently from transfusion with blood from an infected donor. Definitive diagnosis is made by identifying intraerythrocytic organisms in peripheral blood. In patients with low parasitemia, antibody detection by IFA is recommended. IgG levels greater than or equal to 1:1024 can be detected in acute phase patients with parasites in blood smears. The IFA assay can be used as a seroepidemiologic tool to study the frequency and distribution of B. microti in endemic areas especially in persons with mixed infections also involving Borrelia burgdorferi. This test was developed and its analytical performance characteristics have been determined by [facility]. It has not been cleared or approved by FDA. This assay has been validated pursuant to the CLIA regulations and is used for clinical purposes. Test Performed at: [facility] [address] [address] Sarah Archer MD, PhD Blood Venous blood specimen / Unknown Venipuncture / Unknown 10/18/2024 10:36 AM EDT 10/18/2024 10:36 AM EDT Romy Baumann MD LAB BLOOD ORDERABLES Final Result [facility] [address] [place] [address] * FROILAN IFA with titer and pattern (10/18/2024 10:36 AM EDT) FROILAN Negative Negative 10/19/2024 1:[address] [facility] Blood Venous blood specimen / Unknown Venipuncture / Unknown 10/18/2024 10:36 AM EDT 10/18/2024 10:36 AM EDT us Romy Baumann MD LAB BLOOD ORDERABLES Final Result Performing Organization Address [facility]/ZIP Co de Phone Number [facility] [address] [place] [address], [place] [phone] * Thyroid peroxidase antibody (10/18/2024 10:36 AM EDT) [facility] Thyroid Peroxidase Ab 37.0 <=60.0 I Unit/mL LAB CHEMISTRY METHOD 10/18/2024 4:[address] [facility] Blood Venous blood specimen / Unknown Venipuncture / Unknown 10/18/2024 10:36 AM EDT 10/18/2024 10:36 AM EDT Romy Baumann MD LAB BLOOD ORDERABLES Final Result Performing Organization Address [facility] de Phone Number [facility] [address] [place] [address], [place] [phone] * Borrelia burgdorferi antibody (10/18/2024 10:36 AM EDT) [facility] Lyme Ab Negative Negative LAB CHEMISTRY METHOD 10/18/2024 12:[address] [facility] Comment: No laboratory evidence of [...] BLOOD ORDERABLES Final Result Performing Organization Address City/[facility]/ZIP Co de Phone Number [facility] [address] [place] [address], [place] [phone] * Anti-neutrophilic cytoplasmic antibody (10/18/2024 10:36 AM EDT) Pathologist [facility] Myeloperoxidase Ab Negative Negative LAB CHEMISTRY METHOD 10/19/2024 11:[address] [facility] Myeloperoxidase Ab, Quant 1 <=20 units LAB CHEMISTRY METHOD 10/19/2024 11:[address] [facility] Proteinase-3 Ab Negative Negative LAB CHEMISTRY METHOD 10/19/2024 11:[address] [facility] Proteinase-3 Ab Quant 1 <=20 units LAB CHEMISTRY METHOD 10/19/2024 11:[address] [facility] Blood Venous blood specimen / Unknown Venipuncture / Unknown 10/18/2024 10:36 AM EDT 10/18/2024 10:36 AM EDT us Romy Baumann MD LAB BLOOD ORDERABLES Final Result Performing Organization Address City/[facility]/ZIP Co de Phone Number [facility] [address] [place] [address], [place] [phone] * Sedimentation rate (10/18/2024 10:36 AM EDT) [facility] Sed Rate 3 0 - 15 mm/hr LAB HEMETOLOGY METHOD 10/18/2024 12:[address] [facility] Blood Venous blood specimen / Unknown Venipuncture / Unknown 10/18/2024 10:36 AM EDT 10/18/2024 10:36 AM EDT us Romy Baumann MD LAB BLOOD ORDERABLES Final Result [facility] [address] [place] [address], [place] [phone] * Immunofixation electrophoresis serum (10/18/2024 10:36 AM EDT) [facility] Immunofixation Result, Serum IgG [place] monoclonal immunoglobulins detected. LAB CHEMISTRY METHOD 10/20/2024 2:[address] [facility] Blood Venous blood specimen / Unknown Venipuncture / Unknown 10/18/2024 10:36 AM EDT 10/18/2024 10:36 AM EDT us Romy Baumann MD LAB BLOOD ORDERABLES Final Result Performing Organization Address [facility]/ZIP Co de Phone Number [facility] [address] [place] [address], [place] [phone] * (ABNORMAL) Immunoglobulins IgG, IgA, IgM (10/18/2024 10:36 AM EDT) [facility] Total IgG 1,780(H) 549 - 1,584 mg/dL LAB CHEMISTRY METHOD 10/19/2024 10:[address] [facility] IgA 331 61 - 348 mg/dL LAB CHEMISTRY METHOD 10/19/2024 10:[address] [facility] IgM 60 23 - 259 mg/dL LAB CHEMISTRY METHOD 10/19/2024 10:[address] [facility] Blood Venous blood specimen / Unknown Venipuncture / Unknown 10/18/2024 10:36 AM EDT 10/18/2024 10:36 AM EDT us Romy Baumann MD LAB BLOOD ORDERABLES Final Result Performing Organization Address City/[facility]/ZIP Co de Phone Number [facility] [address] [place] [address], [place] [phone] * Folate (10/18/2024 10:36 AM EDT) [facility] Folate 3.1 2.8 - 17.0 ng/ml LAB CHEMISTRY METHOD 10/18/2024 2:[address] [facility] Blood Venous blood specimen / Unknown Venipuncture / Unknown 10/18/2024 10:36 AM EDT 10/18/2024 10:36 AM EDT Romy Baumann MD LAB BLOOD ORDERABLES Final Result Performing Organization Address [facility]/ZIP Co de Phone Number [facility] [address] [place] [address], [place] [phone] * (ABNORMAL) Vitamin B12 (10/18/2024 10:36 AM EDT) Vitamin B-12 1,310(H) 250 - 900 pcg/mL LAB CHEMISTRY METHOD 10/18/2024 2:[address] [facility] Blood Venous blood specimen / Unknown Venipuncture / Unknown 10/18/2024 10:36 AM EDT 10/18/2024 10:36 AM EDT Romy Baumann MD LAB BLOOD ORDERABLES Final Result Performing Organization Address [facility]/ZIP Co de Phone Number [facility] [address] [place] [address], [place] [phone] * External Xray Report (10/14/2024) Anatomical Region Laterality Modality Radiographic Cate ging Provider [facility] XR PROCEDURES Final Result * Ceruloplasmin (08/30/2024 9:57 AM EDT) Ceruloplasmin 23 20 - 60 mg/dL 09/02/2024 5:43 AM EDT [facility] Comment: Test performed at [facility], [address], [place] [address] Diane Lockhart MD, PhD - Safety Counselor Blood Venous blood specimen / Unknown Venipuncture / Unknown 08/30/2024 9:57 AM EDT 08/30/2024 9:57 AM EDT us Kan Denis MD LAB BLOOD ORDERABLES Final R esult [facility] [address] [place] [place] [address] * Hepatitis C antibody (05/31/2024 10:21 AM EST) Hepatitis C Antibody Negative Negative LAB CHEMISTRY METHOD 05/31/2024 4:26 PM [facility] Blood Venous blood specimen / Unknown Venipuncture / Unknown 05/31/2024 10:21 AM EST 05/31/2024 10:21 AM EST us Monique Lott MD LAB BLOOD ORDERABLES Final Resul t [facility] [address] [place] [address], [place] [phone] * Lipid panel with reflex to direct LDL (05/31/2024 10:21 AM EST) Cholesterol 157 0 - 200 mg/dL LAB CHEMISTRY METHOD 05/31/2024 2:25 PM [facility] Triglycerides 90 0 - 150 mg/dL LAB CHEMISTRY METHOD 05/31/2024 2:25 PM [facility] HDL 42 >=40 mg/dL LAB CHEMISTRY METHOD 05/31/2024 2:25 PM [facility] LDL Calculated 97 0 - 100 mg/dL LAB CHEMISTRY METHOD 05/31/2024 2:25 PM [facility] VLDL Cholesterol Esdras 18 mg/dL LAB CHEMISTRY METHOD 05/31/2024 2:25 PM [facility] Non HDL Chol. (LDL+VLDL) 115 <145 mg/dL LAB CHEMISTRY METHOD 05/31/2024 2:25 PM [facility] Chol/HDL Ratio 3.7 0.0 - 4.4 LAB CHEMISTRY METHOD 05/31/2024 2:25 PM EST [facility] Blood Venous blood specimen / Unknown Venipuncture / Unknown 05/31/2024 10:21 AM EST 05/31/2024 10:21 AM EST us Monique Lott MD LAB BLOOD ORDERABLES Final Resul t [facility] ([facility]) [facility] [address] [place] [address], from Last 3 Months or Most Recently Relevant to Health Maintenance Insurance [facility] [employer] Care Teams Seal Delivery Vehicle Team Technician Relationship Specialty Start Date End Date Monique Lott MD [address] [place] [phone] PCP - General 07/08/22
--- OUTSIDE RECORDS SUMMARY | 2024-11-28 09:06 | XMS_ITS ---
Author Name [facility] Organization Unknown Care Team Organization Name Specialty Phone Email Start Date End Da te [facility] Monique Lott Primary Care 09/12/2022 024 [facility] Patti Duque Primary Care 08/11/2022 11/23/19 24
--- NOTE | 2024-11-28 09:47 | A.OFFVIS_ITS ---
Intake Visit Reasons: 1 mnth f/u after LP Allergies No Known Allergies Allergy (Verified 10/14/24 09:39) HPI Comments Details: 38 yo RH man who has a neuropsychiatric?disorder of unknown cause, including possibility of psychosomatic overlay, but his underlying neuropsychiatric history is complicated as he was born premature and 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 He was seen with chronic fatigue syndrome and gait disorder. 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 It was constant and progressing. He was sleeping 5-6 hours a night. His second complaint was unsteadiness and stiffness. He described spasticity and clonus due to which his legs were shake and make him unsteady. He has been seen at MS center in [place] but his imaging did not reveal any such signs.) His exam revealed bilateral hyperreflexia, especially of legs, flexor planters and mildly spastic gait. He is presenting with symptoms suggestive of a neurological condition, particularly concerning possible Multiple Sclerosis (MS). Details from his history reveal that his neurologist is systematically exploring this potential diagnosis due to noted inflammation in the right eye; an orbital MRI has been performed with results pending. The current management includes prednisone 20 mg for over a month to address eye inflammation, which is under review given its side effects including anxiety and gastrointestinal discomfort. Muscle twitching is observed and attributed to medication, with plans to taper the dose. The patient has a referral for a neuro-ophthalmological evaluation to further assess ocular findings. 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 The patient denies extensive joint discomfort, having only experienced generalized body pain previously, which has resolved. Anxiety has been an active concern, exacerbated currently by medication. He reports increased appetite on prednisone, leading to slight weight gain. [facility] Medical History (Updated 11/28/24 @ 10:07 by Romy Baumann MD) Somatization disorder Gait disorder Anxiety Chronic fatigue syndrome Brain cyst Cervical disc disease No pertinent past medical history Surgical History (Updated 10/14/24 @ 09:49 by David Jean-Baptiste RN) No pertinent past surgical history Social History Patient Tobacco Use Status: Current everyday Tobacco user Tobacco use type: Smokeless Tobacco Second Hand Smoke Exposure: No Review of Systems Const Details: - Eyes: Reports eye inflammation, MRI pending - Musculoskeletal: Denies widespread joint problems; reports muscle twitching in the arms and thighs - Neurological: Reports hyperreflexia; denies headache; denies new sensory deficits - Psychological: Reports increased anxiety Physical Exam Neuro Other: Mental Status: Alert and oriented to person, place, and time. Normal attention. Normal spontaneous speech, fluency, and comprehension. No obvious issues with mood and memory. Affect is appropriate. Cranial Nerves: CN II: Visual lópez full to confrontation, visual acuity intact. CN III, IV, : Pupils equal, round, reactive to light and accommodation. Extraocular movements are normal. CN V: Facial sensation is normal. CN VII: Facial movements symmetrical. CN VIII: Hearing intact to bedside conversation is normal. CN IX, X: Palate elevates symmetrically. CN XI: Shoulder shrug and head turn symmetrical. CN XII: Tongue midline without atrophy or fasciculations. Bilateral leg hyperreflexia and mildly spastic gait. Extrapyramidal: Full facial expressions and blinking. No rigidity. Movements are appropriate with no tremor or abnormality. Speech: Normal; no dysarthria or tremor. Assessment & Plan Assessment & Plan (1) Chronic static encephalopathy: Comment: LP at [facility] [place] in October 2024: OP , WBCs 1, RBCs 1, Glu 61, Pro 45.8, IgG ind WNL, OCBs both in serum and CSF NCV/EMG RTUE/RTLE (in office) Early right median neuropathy across the Carpal tunnel, otherwise no significant finding noted. 09/05/24. MRI Brain [facility] at [facility] in Apr 2024: R ant temp area cystic lesion without enhancement, probably intra-axial, Chronic PNS disease MRI C + T + LS spine at [facility] in May 2024: Straight cervical curvature, C 5/6 midline disc w/o significant stenosis, Mild mid thoracic similar disc, no cord disease Labs at [place] in 2024: B12,folate, TSH, thyroid Abs, ESR, FROILAN, Babesiosis, Lyme, Treponema: WNL Code(s): G93.49 - Other encephalopathy Category: Medical (2) Spastic gait: Code(s): R26.1 - Paralytic gait Category: Medical Plan 38 yo man with complicated underlying history that could result in chronic static encephalopathy was seen for fatigue, lethargy and difficulty walking. His exam revealed hyperreflexia and spastic gait. Based upon imaging and labs, diagnostic criterion for MS is difficult to meet. He did not respond to prednisone and my suggestion is to taper it off. He is also seeing an MS specialist and planning to see a neuro-ophtholmologist in [facility]. In the meantime PT/OT consult is recommended. Orders: Orders PT Evaluation and Treatment Today G93.49 - Other encephalopathy OT Evaluation and Treatment Today G93.49 - Other encephalopathy Coding Level of Care Code Tele New Pt Level 5 (58757) Diagnoses Chronic static encephalopathy G93.49 Spastic gait R26.1
== END 2024-11-28 10:39 | disposition home or self-care (01) ==
LOC: HO.HSM 08:39
PROVIDERS: PCP Internal Medicine; Visit Provider Psychiatry & Neurology Neurology
DX: G93.49 Other encephalopathy (principal); R26.1 Paralytic gait
CPT/HCPCS: 99213

== ENCOUNTER → 2024-11-28 08:39 | Outpatient (BNVA) | payer OTHER, SELFPAY | PROVIDERS: PCP Internal Medicine; Visit Provider Psychiatry & Neurology Neurology | DX: R26.1 Paralytic gait (principal); G93.49 Other encephalopathy | CPT/HCPCS: 99212 ==